=== PATIENT | male | born 1950 | race Caucasian/White ===

== ENCOUNTER 2016-10-01 05:37 | Emergency (ER) | payer OTHER, BC ==
[~2016-10-01] VITALS: Ht 177.8 cm; Wt 68.0 kg
[~2016-10-01 05:37] MED LIST: ALPR0.5T PO; ARIP5TAB4 PO
--- NOTE | 2016-10-01 05:41 | NUR ---
PT A/OX4 BREATHING EFFORTLESSLY ON ROOM AIR, PT STATES HE DID HEROINE TONIGHT, PT STATES HE SNORTED THE HEROINE, PT BIBA, PER EMS ROOMATE WAS DOING CPR UPON ARRIVAL AND PT WAS BREATHING AT A RATE OF 2, EMS GAVE 2MG OF NARCAN, PER EMS PT WOKE UP INSTANTLY, PT ON MONITOR, MD MADE AWARE WILL CONTINUE TO MONITOR.
--- NOTE | 2016-10-01 05:54 | NUR ---
URINE COLLECTED AND SENT TO LAB, ACCUCHECK DONE, LAB AT BEDSIDE DRAWING BLOOD, MD MADE AWARE WILL CONTINUE TO MONITOR.
[2016-10-01 06:07] LABS: BASOPHILS % (AUTO) 0.4 % (0.0-2.0); EOSINOPHILS # (AUTO) 0.1 /CMM (0.0-0.7); HEMATOCRIT 47 % (39-51); HEMOGLOBIN 15.4 g/dL (13.5-17.5); LYMPHOCYTES # (AUTO) 2.2 /CMM (0.8-4.8); LYMPHOCYTES % (AUTO) 25.7 % (20.0-44.0); MEAN CORPUSCULAR HEMOGLOBIN 28 PG (26.0-33.0); MEAN CORPUSCULAR HGB CONC 33 g/dl (31.0-36.0); MEAN CORPUSCULAR VOLUME 83 fL (80-96); MONOCYTES # (AUTO) 0.4 /CMM (0.1-1.30); MONOCYTES % (AUTO) 4.7 % (2.0-12.0); NEUTROPHILS # (AUTO) 5.8 /CMM (1.8-8.9); NEUTROPHILS % (AUTO) 68.2 % (43.0-81.0); PLATELET COUNT (AUTO) 233 /CMM (150-450); RDW COEFFICIENT OF VARIATION 12.9 (11.5-15.0); WHITE BLOOD COUNT (AUTO) 8.4 K/uL (4.3-11.0)
[2016-10-01 06:14] LABS: APPEARANCE,URINE CLEAR (CLEAR); BILIRUBIN,URINE NEGATIVE (NEGATIVE); BLOOD, URINE NEGATIVE Ery/uL (NEGATIVE); COLOR,URINE YELLOW (YELLOW); KETONES,URINE NEGATIVE (NEGATIVE); LEUKOCYTE ESTERASE ,URINE TRACE (NEGATIVE); NITRITE, URINE NEGATIVE (NEGATIVE); PROTEIN,URINE NEGATIVE (NEGATIVE); UGLUCOSE NEGATIVE (NEGATIVE); UROBILINOGEN,URINE 0.2 EU/dL (0.2)
[2016-10-01 06:23] LABS: BACTERIA,URINE Rare /HPF (None Seen); MUCUS,URINE Few /LPF (None Seen); RBC,URINE 0-2 /HPF (0-2); SQUAMOUS EPITHELIAL CELL,UR 0-2 /HPF (None Seen); URINE AMORPHOUS URATE Few /HPF (None Seen)
[2016-10-01 06:34] LABS: ALANINE AMINOTRANSFERASE 19 U/L (12-78); ALBUMIN 4.1 g/dL (3.4-5.0); ALKALINE PHOSPHATASE 70 U/L (46-116); ASPARTATE AMINOTRANSFERASE 11 U/L (15-37); BILIRUBIN,DIRECT 0.1 mg/dL (0.0-0.2); BILIRUBIN,TOTAL 0.3 mg/dL (0.2-1.0); CALCIUM, SERUM 8.8 mg/dL (8.5-10.1); CARBON DIOXIDE 28 mmol/L (21-32); CHLORIDE 105 mmol/L (98-107); CREATININE 1.2 mg/dL (0.6-1.3); GLUCOSE 148 mg/dL (74-106); POTASSIUM 3.6 mmol/L (3.5-5.1); SALICYLATE 3.9 mg/dL (2.8-20.0); SODIUM SERUM 142 mmol/L (136-145); TOTAL PROTEIN, SERUM 7.4 g/dL (6.4-8.2); UREA NITROGEN, BLOOD 13 mg/dL (7-18)
[2016-10-01 06:38] VITALS: BP 148/97
[2016-10-01 06:38] LABS: ACETAMINOPHEN 0 ug/ml (10-30); ALCOHOL, BLOOD < 3 mg/dL (0-0)
--- NOTE | 2016-10-01 06:38 | NUR ---
Patient discharged to home in stable condition. Written and verbal after care instructions given. Patient verbalizes understanding of instruction.IV removed. Catheter intact and site benign. Pressure and 4x4 applied to site. No bleeding noted. PT WALKED OUT WITH A STEADY GAIT AND STATES HE IS FEELING GOOD
== END 2016-10-01 06:39 | disposition home or self-care (01) ==
LOC: ER 05:38
DX: T40.1X1A Poisoning by heroin, accidental (unintentional), initial encounter (principal); F17.200 Nicotine dependence, unspecified, uncomplicated; Y92.89 Other specified places as the place of occurrence of the external cause
CPT/HCPCS: 36415; 71010-TC; 80048-TC; 80076-TC; 80305; 81000-TC; 82962-TC; 85025-TC; A4606; G0480; Z7610

== ENCOUNTER 2016-12-20 06:51 | Emergency (ER) | payer OTHER, BC ==
[~2016-12-20] VITALS: Ht 177.8 cm; Wt 68.0 kg
--- NOTE | 2016-12-20 06:56 | NUR ---
amor gonzalez at bedside to katie rodriguez.
--- NOTE | 2016-12-20 07:02 | NUR ---
Pt medically cleared per er md. Patient discharged to [facility] custody in stable condition. Written and verbal after care instructions given. Patient verbalizes understanding of instruction.
[2016-12-20 07:03] VITALS: BP 141/97
== END 2016-12-20 07:03 ==
LOC: ER 06:52
DX: Z02.89 Encounter for other administrative examinations (principal)
CPT/HCPCS: 99283; A4606; Z7610

== ENCOUNTER 2020-09-13 20:28 | Emergency (ER) | payer BC, OTHER ==
[~2020-09-13] VITALS: Ht 177.8 cm; Wt 88.5 kg
[~2020-09-13 20:28] MED LIST changes: +ARIP5TAB10 PO; -ARIP5TAB4 PO
--- NOTE | 2020-09-13 20:42 | NUR ---
Pt bibself c/o left lower extremity pain and redness. Pt aaox4 breathing evenly and unlabored. Upon assessment, pt left lower extremity is red and swollen. Per pt, "he had a tx of antibiotics, finished the bottle, but the infection got bad again". Pt attached to monitor and pox. MD at bedside. Pt given blanket and call light within reach
--- NOTE | 2020-09-13 20:50 | NUR ---
emt at bedside for wound care
[2020-09-13] MEDS ORDERED: SULF1TAB48 PO (20:54)
[2020-09-13] MEDS ORDERED: CEPH500C2 PO (20:54)
--- NOTE | 2020-09-13 21:03 | NUR ---
Patient discharged to home in stable condition. Written and verbal after care instructions given. Patient verbalizes understanding of instruction. Pt ambulatory with a steady gait
[2020-09-13 21:04] VITALS: BP 160/98
== END 2020-09-13 21:03 | disposition home or self-care (01) ==
LOC: ER 20:40
DX: L03.116 Cellulitis of left lower limb (principal); Z79.899 Other long term (current) drug therapy

== ENCOUNTER 2022-05-28 04:47 | Emergency (ER) | payer MEDICARE, OTHER ==
[~2022-05-28] VITALS: Ht 177.8 cm; Wt 83.9 kg
--- NOTE | 2022-05-28 06:05 | NUR ---
BIBS. L LOWER LEG, PAIN, SWELLING AND OOZING WITH PUSS.
[2022-05-28] MEDS ORDERED: SULFAMETH/TRIMETH 800/160 MG 1 UDTAB TABLET PO ONE (06:30)
[2022-05-28] MEDS ORDERED: ACETAMINOPHEN 325 MG TABLET PO ONE (06:30)
[2022-05-28] MEDS ORDERED: CEPHALEXIN MONOHYDRATE 500 MG CAPSULE PO ONE ×2 (06:30→06:35)
[2022-05-28] MEDS ORDERED: ACETAMINOPHEN 325 MG TABLET ONE (06:35)
[2022-05-28] MEDS ORDERED: SULFAMETH/TRIMETH 800/160 MG 1 UDTAB TABLET ONE (06:36)
--- NOTE | 2022-05-28 07:50 | NUR ---
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 MADE AWARE
[2022-05-28] MEDS ORDERED: SULF1TAB48 PO (08:22)
[2022-05-28] MEDS ORDERED: CEPH500C2 PO (08:22)
--- NOTE | 2022-05-28 08:38 | NUR ---
Discharge paperwork discussed with pt. Verbalized understanding and signed
[2022-05-28 08:43] VITALS: BP 131/81
== END 2022-05-28 09:07 | disposition home or self-care (01) ==
LOC: ER 04:50
DX: L03.116 Cellulitis of left lower limb (principal); F17.200 Nicotine dependence, unspecified, uncomplicated; Z79.899 Other long term (current) drug therapy
CPT/HCPCS: 99284; 93971; A6403